=== PATIENT | male | born 1930 | race Caucasian/White ===

== ENCOUNTER 2018-06-10 14:16 | Inpatient (IN) | payer OTHER ==
[~2018-06-10] VITALS: Ht 170.2 cm; Wt 74.3 kg
--- NOTE | ~2018-06-10 | 2DMMODE ---
[facility] [address] [place] [address] 2 D/M-MODE ECHOCARDIOGRAM Name: ASHLYJORDEN Seble Room #: 202-P [facility] IN .R.#: [id number] Admission: 06/10/18 Attend Phys: Kaden Sandhu, Discharge: Date of : [birth year]/08/[birth year] Date of Service: 06/11/18 0826 Report #: [id number] THIS REPORT FOR: //name// APPROVED REPORT Study performed: 06/11/2018 07:03:56 EXAM: Comprehensive 2D, Doppler, and color-flow Echocardiogram Patient Location: Bedside Room #: 202 Status: routine BSA: 1.85 HR: 54 bpm BP: 132/63 mmHg Rhythm: LBBB, AFIB Other Information Study Quality: Good Indications Chest pain, dyspnea, elevated troponin. Hx: CAD, stents, ISCM, Afib, HTN, HLP 2D Dimensions RVDd: 36.62 mm IVSd: 12.11 (7-11mm) LVOT Diam: 21.31 (18-24mm) LVDd: 50.34 mm PWd: 9.69 (7-11mm) Ascending Ao: 38.75 (22-36mm) LVDs: 41.12 (25-40mm) Aortic Root: 36.03 mm Volumes Left Atrial Volume (Systole) Single Plane 4CH: 49.14 mL Single Plane 2CH: 55.44 mL LA ESV Index: 31.00 mL/m2 Aortic Valve AoV Peak Wesyl.: 1.11 m/s AO Peak Gr.: 5.78 mmHg LVOT Max P.05 mmHg LVOT Max V: 0.71 m/s SINA Vmax: 2.27 cm2 Mitral Valve MV Decel. Time: 184.46 ms MV E Max Wesly.: 0.95 m/s [facility] [place] [employer] [address] 2 D/M-MODE ECHOCARDIOGRAM Name: JORDEN LIMON Room #: 202-P [facility] M.R.#: [id number] Admission: 06/10/18 Attend Phys: Kaden Sanhdu, Discharge: Date of : 11/08/[birth year] Date of Service: 06/11/18 0826 Report #: [id number] Pulmonary Valve PV Peak Wesly.: 1.17 m/s PV Peak Gr.: 5.49 mmHg Tricuspid Valve RAP Estimate: 5.00 mmHg Left Ventricle The left ventricle is normal size. Mild septal hypertrophy is present. Left ventricular systolic function is moderate to severely decreased. Global hypokinesis, akinesis of base of inferior wall LVEF 30%. This study is not technically sufficient to allow evaluation of the LV diastolic function. Right Ventricle The right ventricle is normal size. The right ventricular systolic function is normal. Atria The left atrium size is normal. The right atrium size is normal. Aortic Valve Aortic valve leaflets are minimally sclerotic No aortic regurgitation. There is no aortic valvular stenosis. Mitral Valve The mitral valve is normal in structure. Mild to moderate mitral regurgitation. Tricuspid Valve The tricuspid valve is normal in structure. There is no tricuspid valve regurgitation noted. Unable to assess PA pressure. Pulmonic Valve The pulmonary valve is normal in structure. Trace pulmonic regurgitation. Great Vessels The aortic root is normal in size. The ascending aorta is mildly dilated (3.9cm). IVC is normal in size and collapses >50% with inspiration. Pericardium There is no pericardial effusion. [facility] [place] [employer] [address] 2 D/M-MODE ECHOCARDIOGRAM Name: JORDEN LIMON Room #: 202-P [facility] M.R.#: [id number] Admission: 06/10/18 Attend Phys: Kaden Sandhu, Discharge: Date of : 11/08/[birth year] Date of Service: 06/11/18825 Report #: [id number] <Conclusion> Left ventricular systolic function is moderate to severely decreased. Global hypokinesis, akinesis of base of inferior wall LVEF 30%. Aortic valve leaflets are minimally sclerotic No aortic regurgitation. The mitral valve is normal in structure. Mild to moderate mitral regurgitation. Pulmonary artery pressure could not be reliably ascertained There is no pericardial effusion. <ELECTRONICALLY SIGNED> By: Mario Rich MD, [facility] 11825 5 5 Mario Rich MD, [facility] /INF
--- NOTE | ~2018-06-10 | CATHLAB ---
[facility] [address] [place] [address] INVASIVE PROCEDURE REPORT Name: JORDEN LIMON Room #: 202-P [facility] IN .R.#: [id number] Admission: 06/10/18 Attend Phys: Kaden Sandhu, Discharge: Date of : 11/08/30 Date of Service: 06/14/18 1502 Report #: [id number] THIS REPORT FOR: //name// APPROVED REPORT Study performed: 06/14/2018 07:28:22 Patient Details Patient Status: In-Patient Room #: The patient is a 87 year-old male Event Personnel Lyle Russo Heavy Equipment Rental Manager, Gerry Martin RN, Gita Hutson RTR, MILES Dela Cruz, Brandan Kraus Monitor Procedures Performed Right and Left Heart Cath w/or w/o Coronarie [id number] [facility] Indication Chest pain Procedure Narrative The Right Groin^ was infiltrated with subcutaneous anesthesia. A PINNACLE 6FR Sheath #[id number] sheath was inserted into the RFA^. Coronary angiography was performed using coronary diagnostic catheters. The right coronary system was accessed and visualized with a JR4 catheter. The left coronary system was accessed and visualized with a 6FR JL5 #[id number] catheter. The left ventricle was accessed and visualized with a PIGTAIL catheter. Left ventricular/Aortic Valve gradient assessed via catheter pullback. Left ventriculogram was performed in 30 degree projection. Closure device was deployed with a 6 Fr MYNXGRIP 6/7F #[id number]. Hemostasis was obtained with manual pressure following sheath removal without any complications. The patient tolerated the procedure well and there were no complications associated with the procedure. There was no hematoma. Intraoperative Conscious Sedation Sedation start time: 8.43 Case end Time: 9.29 Fentanyl 50 mcg Versed 1.5 mg Fluoro Time: 5.19 minutes Dose: DAP 4343 cGycm2 412 mGy Contrast Type and Amount: Visipaque 80 ml [facility] [place] [address] INVASIVE PROCEDURE REPORT Name: JORDEN LIMON Seble Room #: 202-P [facility] IN M.R.#: [id number] Admission: 06/10/18 Attend Phys: Kaden Sandhu, Discharge: Date of : 11/08/30 Date of Service: 06/14/18 1502 Report #: [id number] Hemodynamics The right atrial mean pressure is 26 mmHg. The right ventricular pressure is 55/13 mmHg. The pulmonary artery pressure is 61/24 mmHg with a mean of mmHg. The mean pulmonary capillary wedge pressure is 30 mmHg. The aortic pressure is 172/78 mmHg with a mean of 108 mmHg. The left ventricular pressure is 177/24 mmHg with a mean of mmHg. The left ventricular end diastolic pressure is 33 mmHg. There was no gradient across the aortic valve upon pullback. Pullback from the left ventricle to the aorta revealed no gradient across the aortic valve. Conclusion #1 mildly dilated left ventricle. Akinesis of the inferior base moderate global hypo-EF 35% range with 2+ MR #2 left main mildly diseased and calcified giving rise to LAD and circumflex #3 LAD is moderately diseased there is a proximal mid vessel stent has 30-40% in-stent and then 50% mid vessel lesion which is also in-stent. Calcification extends around the apex but no high-grade occlusive disease #4 ostial circumflex nondominant mildly disease and then a 60% proximal large OM lesion not flow limiting. The proximal circumflex has a high-grade lesion which then gives essentially supplies a small circumflex branch which then is distally occluded this is chronic. Some left to left collateralization is noted fairly small area of distribution The distal circumflex system does filling from left to left collateralization this would not be amenable to intervention #5 right coronary artery is totally occluded some collateralization of the PDA is noted from the left system. This has been previously noted. No indication for intervention #6 bilateral renal arteries have mild disease there was question of renal disease on prior noninvasive testing #7 heart catheterization was performed by [place] catheter and output by thermodilution. Moderate volume overload is noted see above hemodynamics. IV Lasix has been initiated Recommendations and plan: We'll return to CCU. Follow post stent protocol. More aggressive diuresis and optimization of medical therapy. No indication for coronary intervention. These findings are [facility] [address] [place] [address] INVASIVE PROCEDURE REPORT Name: JORDEN LIMON Room #: 202-P [facility] IN M.R.#: [id number] Admission: 06/10/18 Attend Phys: Kaden Sandhu, Discharge: Date of : 11/08/30 Date of Service: 06/14/18 1502 Report #: [id number] consistent with a type II infarcts possible mismatch of supply and demand. <ELECTRONICALLY SIGNED> By: Lyle Russo MD, FACC 06/14/18 1502 150 01 Lyle Russo MD, FACC /INF
--- NOTE | ~2018-06-10 | EKG ---
[address] [place] [address] ELECTROCARDIOGRAM REPORT Name: JORDEN LIMON Room #: 202-P ADM IN M.R.#: [id number] Admission: 06/10/18 Attend Phys: Kaden Sandhu MD Discharge: Date of : 11/08/30 Report #: [id number] THIS REPORT FOR: //name// [facility] Test Date: 2018-06-13 Test Time: 10:00:58 Pat Name: JORDEN LIMON Department: Room: 202 P Gender: M Ssn/Ssbn Weapons Equipment Operator: ZAC : 1930 Requested By: Francisco Javier Amador Order Number: [id number] MD: Francisco Javier Amador Measurements Intervals [place] Rate: 57 P: 19 NE: 279 QRS: -2 QRSD: 160 T: 191 QT: 499 QTc: 486 Interpretive Statements Sinus rhythm Atrial premature complex Prolonged NE interval Left bundle branch block Compared to ECG 06/11/2018 06:15:56 Atrial premature complex(es) now present First degree AV block now present Atrial fibrillation no longer present Ventricular premature complex(es) no longer present Electronically Signed On 06-13-2018 10:31:28 MARRIAGE AND FAMILY COUNSELOR by Francisco Javier Amador [email or web address] <ELECTRONICALLY SIGNED> By: Francisco Javier Amador MD 06/13/18 1031 1000 1000 Francisco Javier Amador MD /EPI
--- NOTE | ~2018-06-10 | EKG ---
[address] [email or web address] [address] ELECTROCARDIOGRAM REPORT Name: JORDEN LIMON Room #: [facility] M.R.#: [id number] Admission: Attend Phys: Discharge: Date of : 11/08/30 Report #: [id number] THIS REPORT FOR: //name// [facility] ED Test Date: 2018-06-10 Test Time: 14:23:36 Pat Name: JORDEN LIMON Department: Room: Gender: M Etymology Professor: TRISTAN : 1930 Requested By: Danial Pena Order Number: [id number] MD: Bradley Deleon Measurements Intervals [place] Rate: 69 P: [place]: QRS: -4 QRSD: 151 T: 118 QT: 455 QTc: 488 Interpretive Statements Atrial fibrillation Left bundle branch block Compared to ECG 05/06/2005 06:54:52 Electronically Signed On 06-10-2018 14:51:30 PLUNKET NURSE by Bradley Deleon [email or web address] <ELECTRONICALLY SIGNED> By: Bradley Deleon MD 06/10/18 1451 1423 1423 Bradley Deleon MD /EPI
--- NOTE | ~2018-06-10 | EKG ---
[address] [address] ELECTROCARDIOGRAM REPORT Name: JORDEN LIMON Room #: 202-P ADM IN M.R.#: [id number] Admission: 06/10/18 Attend Phys: Kaden Sandhu MD Discharge: Date of : 11/08/30 Report #: [id number] THIS REPORT FOR: //name// [facility] Test Date: 2018-06-11 Test Time: 06:15:56 Pat Name: JORDEN LIMON Department: Room: 202 P Gender: M Parts Specialist: PIYUSH : 1930 Requested By: Mario Rich Order Number: [id number] MD: Bradley Deleon Measurements Intervals [place] Rate: 48 P: GA: QRS: 8 QRSD: 161 T: 161 QT: 528 QTc: 472 Interpretive Statements Atrial fibrillation Ventricular premature complex Left bundle branch block Compared to ECG 06/10/2018 14:23:36 Ventricular premature complex(es) now present Electronically Signed On 06-11-2018 8:04:30 SPOOLING SUPERVISOR by Bradley Deleon [email or web address] <ELECTRONICALLY SIGNED> By: [place] [address] 4 4 Bradley Deleon MD /BRIAN
[2018-06-10 14:40] VITALS: BP 164/100
[2018-06-10 15:07] LABS: ABSOLUTE NEUTROPHILS 7.7 thou/uL (1.4-8.2); BASOPHILS 0.2 % (0.0-2.0); EOSINOPHILS 1.2 % (0.0-3.0); HEMATOCRIT 41.7 % (42.0-52.0); HEMOGLOBIN 14.3 gm/dL (14.0-18.0); LYMPHOCYTES 17.1 % (24.0-44.0); MCH 30.6 pg (26.0-34.0); MCHC 34.2 g/dL (28.0-37.0); MCV 89.4 fL (80.0-100.0); MONOCYTES 10.6 % (1.0-8.0); PLATELET COUNT 355 thou/uL (150-400); POLYS 70.9 % (36.0-66.0); RBC 4.67 mil/uL (4.50-6.00); RDW 13.3 % (10.5-14.5); WBC 10.8 thou/uL (4.0-11.0)
[2018-06-10 15:14] LABS: CALCIUM 9.6 mg/dL (8.5-10.1); CREATININE 1.7 mg/dL (0.7-1.3); POTASSIUM 4.2 mmol/L (3.5-5.1)
[2018-06-10 15:20] LABS: ALBUMIN 3.5 g/dL (3.4-5.0); TOTAL BILIRUBIN 0.6 mg/dL (<0.1-1.0); TOTAL PROTEIN 6.4 g/dL (6.4-8.2)
[2018-06-10] MEDS ORDERED: ARICEPT 5 MG TAB5 MG PO (16:59)
[2018-06-10] MEDS ORDERED: LIPITOR 20 MG T20 M1 PO (16:59)
[2018-06-10] MEDS ORDERED: NAMENDA 10 MG T10 MG PO (16:59)
[2018-06-10] MEDS ORDERED: BYSTOLIC2.5 MG PO (17:00)
[2018-06-10] MEDS ORDERED: XARELTO15 MG PO (17:00)
[2018-06-10] MEDS ORDERED: IMDUR 30 MG TAB30 M1 PO (17:01)
[2018-06-10 17:16] VITALS: BP 129/69
[2018-06-10 17:22] LABS: INR 1.1; PROTIME 11.7 Seconds (9.3-11.4)
[2018-06-10 18:30] VITALS: BP 137/78
[2018-06-10 18:51] VITALS: BP 142/67
[2018-06-11 00:19] VITALS: BP 130/74
[2018-06-11 04:21] LABS: ABSOLUTE NEUTROPHILS 6.3 thou/uL (1.4-8.2); BASOPHILS 0.6 % (0.0-2.0); EOSINOPHILS 2.2 % (0.0-3.0); HEMATOCRIT 39.1 % (42.0-52.0); LYMPHOCYTES 19.9 % (24.0-44.0); MCHC 33.2 g/dL (28.0-37.0); MCV 90.4 fL (80.0-100.0); MONOCYTES 9.2 % (1.0-8.0); PLATELET COUNT 311 thou/uL (150-400); POLYS 68.1 % (36.0-66.0); RBC 4.32 mil/uL (4.50-6.00); RDW 13.4 % (10.5-14.5); WBC 9.2 thou/uL (4.0-11.0)
[2018-06-11 04:52] LABS: CALCIUM 8.5 mg/dL (8.5-10.1); CREATININE 1.5 mg/dL (0.7-1.3); MAGNESIUM 1.8 mg/dL (1.8-2.4); POTASSIUM 3.7 mmol/L (3.5-5.1)
[2018-06-11 05:29] VITALS: BP 132/63
[2018-06-11 08:00] VITALS: BP 123/53
[2018-06-11 12:00] VITALS: BP 132/63
[2018-06-11 16:00] VITALS: BP 120/62
[2018-06-11 19:30] VITALS: BP 107/60
[2018-06-12 04:50] VITALS: BP 118/59
[2018-06-12 05:07] LABS: CALCIUM 8.1 mg/dL (8.5-10.1); CREATININE 1.6 mg/dL (0.7-1.3); POTASSIUM 3.8 mmol/L (3.5-5.1)
[2018-06-12 08:20] VITALS: BP 124/57
[2018-06-12 11:52] VITALS: BP 118/47
[2018-06-12 20:45] VITALS: BP 148/70
[2018-06-13 05:26] VITALS: BP 155/79
[2018-06-13 07:25] VITALS: BP 145/72
[2018-06-13 08:19] LABS: HEMATOCRIT 35.7 % (42.0-52.0); HEMOGLOBIN 12.1 gm/dL (14.0-18.0); MCH 30.6 pg (26.0-34.0); MCHC 33.8 g/dL (28.0-37.0); MCV 90.6 fL (80.0-100.0); RBC 3.94 mil/uL (4.50-6.00); RDW 13.4 % (10.5-14.5); WBC 10.9 thou/uL (4.0-11.0)
[2018-06-13 08:27] LABS: CREATININE 1.5 mg/dL (0.7-1.3); POTASSIUM 4.2 mmol/L (3.5-5.1)
[2018-06-13 11:45] VITALS: BP 132/67
[2018-06-13 15:45] VITALS: BP 141/71
[2018-06-13 19:07] VITALS: BP 153/78
[2018-06-14] VITALS (15 sets, daily range): BP systolic 138–176; BP diastolic 43–86
[2018-06-14 03:57] LABS: CALCIUM 8.7 mg/dL (8.5-10.1); CREATININE 1.4 mg/dL (0.7-1.3); MAGNESIUM 1.8 mg/dL (1.8-2.4); POTASSIUM 4.1 mmol/L (3.5-5.1)
[2018-06-14 04:30] LABS: HEMATOCRIT 36.9 % (42.0-52.0); HEMOGLOBIN 12.3 gm/dL (14.0-18.0); MCH 30.2 pg (26.0-34.0); MCHC 33.4 g/dL (28.0-37.0); MCV 90.5 fL (80.0-100.0); RBC 4.08 mil/uL (4.50-6.00); RDW 13.4 % (10.5-14.5); WBC 11.8 thou/uL (4.0-11.0)
[2018-06-15 04:10] LABS: APTT 26.3 Seconds (24.5-32.8); INR 1.2; PROTIME 12.5 Seconds (9.3-11.4)
[2018-06-15 04:24] LABS: HEMATOCRIT 40.5 % (42.0-52.0); HEMOGLOBIN 13.5 gm/dL (14.0-18.0); MCH 30.1 pg (26.0-34.0); MCHC 33.3 g/dL (28.0-37.0); MCV 90.2 fL (80.0-100.0); RBC 4.49 mil/uL (4.50-6.00); RDW 13.5 % (10.5-14.5); WBC 12.7 thou/uL (4.0-11.0)
[2018-06-15 04:29] LABS: CALCIUM 8.8 mg/dL (8.5-10.1); CREATININE 1.5 mg/dL (0.7-1.3); MAGNESIUM 1.7 mg/dL (1.8-2.4); POTASSIUM 3.8 mmol/L (3.5-5.1)
[2018-06-15 05:09] VITALS: BP 144/75
[2018-06-15 07:31] VITALS: BP 130/74
[2018-06-15] MEDS ORDERED: IMDUR 60 MG TAB60 M1 PO (10:37)
[2018-06-15] MEDS ORDERED: DEMADEX20 MG PO (10:37)
[2018-06-15] MEDS ORDERED: SPIRONOLACTONE25 M1 PO (10:37)
[2018-06-15 10:54] VITALS: BP 130/74
== END 2018-06-15 12:00 | disposition home or self-care (01) | DRG 280 ==
LOC: ER 14:16 → 2N 16:25 → EROBS 16:25 → 2N 18:28 → ENTRNSPT 06-15 11:20 → EDTRNSPTSTS 06-15 11:28 → DELTRNSPT 06-15 11:44 → ENTRNSPT 06-15 11:44 → 2N 06-15 12:00
PROVIDERS: Internal Medicine; Nurse Practitioner; Nurse Practitioner Adult Health; Physician Assistant
PROC: 4A023N8 Measurement of Cardiac Sampling and Pressure, Bilateral, Percutaneous Approach (ICD-10-PCS; principal; 2018-06-14)
PROC: B211YZZ Fluoroscopy of Multiple Coronary Arteries using Other Contrast (ICD-10-PCS; principal; 2018-06-14)
PROC: B215YZZ Fluoroscopy of Left Heart using Other Contrast (ICD-10-PCS; principal; 2018-06-14)
DX: I21.4 Non-ST elevation (NSTEMI) myocardial infarction (principal); I50.21 Acute systolic (congestive) heart failure; N17.9 Acute kidney failure, unspecified; I48.1 Persistent atrial fibrillation; D68.59 Other primary thrombophilia; K57.92 Diverticulitis of intestine, part unspecified, without perforation or abscess without bleeding; N18.4 Chronic kidney disease, stage 4 (severe); I13.0 Hypertensive heart and chronic kidney disease with heart failure and stage 1 through stage 4 chronic kidney disease, or unspecified chronic kidney disease; E78.5 Hyperlipidemia, unspecified; I25.10 Atherosclerotic heart disease of native coronary artery without angina pectoris; I25.5 Ischemic cardiomyopathy; I44.7 Left bundle-branch block, unspecified; F03.90 Unspecified dementia, unspecified severity, without behavioral disturbance, psychotic disturbance, mood disturbance, and anxiety; Z66 Do not resuscitate; R00.1 Bradycardia, unspecified; Z79.899 Other long term (current) drug therapy; Z95.5 Presence of coronary angioplasty implant and graft; Z88.8 Allergy status to other drugs, medicaments and biological substances; Z87.891 Personal history of nicotine dependence; Z98.52 Vasectomy status
CPT/HCPCS: 10081; 10194

== ENCOUNTER 2019-05-25 07:48 | Outpatient (CLI) | payer OTHER ==
[~2019-05-25] VITALS: Ht 167.6 cm; Wt 72.6 kg
[~2019-05-25 07:48] MED LIST: ARICEPT 5 MG TAB5 MG PO; BYSTOLIC2.5 MG PO; DEMADEX20 MG PO; IMDUR 30 MG TAB30 M1 PO; IMDUR 60 MG TAB60 M1 PO; LIPITOR 20 MG T20 M1 PO; NAMENDA 10 MG T10 MG PO; SPIRONOLACTONE25 M1 PO; XARELTO15 MG PO
[2019-05-25 08:31] LABS: ABSOLUTE NEUTROPHILS 7.1 thou/uL (1.4-8.2); BASOPHILS 0.9 % (0.0-2.0); HEMATOCRIT 39.7 % (42.0-52.0); HEMOGLOBIN 12.7 gm/dL (14.0-18.0); LYMPHOCYTES 12.7 % (24.0-44.0); MCH 30.1 pg (26.0-34.0); MCV 94.1 fL (80.0-100.0); MONOCYTES 9.7 % (1.0-8.0); PLATELET COUNT 270 thou/uL (150-400); POLYS 73.7 % (36.0-66.0); RBC 4.22 mil/uL (4.50-6.00); RDW 13.8 % (10.5-14.5); WBC 9.7 thou/uL (4.0-11.0)
[2019-05-25 08:36] LABS: CALCIUM 9.4 mg/dL (8.5-10.1); CREATININE 1.7 mg/dL (0.7-1.3); POTASSIUM 4.6 mmol/L (3.5-5.1)
[2019-05-25 08:40] VITALS: BP 136/75
[2019-05-25] MEDS ORDERED: ASPIRIN325 PO (08:52)
[2019-05-25] MEDS ORDERED: UNICOMPLEX M TA1 TA1 PO (08:53)
[2019-05-25] MEDS ORDERED: COQ-10100 MG PO (08:54)
[2019-05-25] MEDS ORDERED: CALCIUM 500 +1 EAC1 PO (08:55)
[2019-05-25] MEDS ORDERED: VITAMIN D35000 UNI1 PO (08:55)
--- NOTE | 2019-05-25 13:30 | NUR ---
1300-PT SITTING UP IN BED, CONTINUES TO COMPLAIN OF H/A RATING 10/10. STATES TYLENOL DID NOT WORK. PT.STATES HE USUALLY DRINKS COFFEE IN THE MORNING AND HAS NOT HAD ANY TODAY. COFFEE GIVEN, BUT ONLY TAKES SMALL SIP. PT DENIES SOA, HOWEVER SEEMS TO BE USING ACCESSORY MUSCLES EVERY NOW AND AGAIN TO TAKE A DEEP BREATH. PT DENIES SOA. 02 SATS HIGH 90'S. [address] ANGELITA LOPEZ FOR PT TO TAKE HYDROCODONE 5/325 X 1.
--- NOTE | 2019-05-25 14:21 | NUR ---
PT STATES HIS HEADACHE IS GETTING WORSE, DESPITE LORTAB. VS STABLE. PT HAS VOIDED A TOTAL OF APPROX 300-350 OF CLEAR YELLOW URINE. SPOUSE AT BEDSIDE.
--- NOTE | 2019-05-25 16:09 | NUR ---
Pt resting, headache easing up. Report called to Rosina in CCU. Pt will be going to CCU as soon as able.
--- NOTE | 2019-05-25 16:28 | NUR ---
Contacting Dr. Russo re: pt becoming hypertensive . Requesting to order home medications.
--- NOTE | 2019-05-25 16:32 | NUR ---
Order received to restart home medications.
[2019-05-25 20:00] VITALS: BP 165/66
[2019-05-26] VITALS: BP 140/74
[2019-05-26 05:00] VITALS: BP 143/72
--- NOTE | 2019-05-26 05:00 | NUR ---
ASSUMED PT CARE AT 1900. PT IS DROWSY AND LAYING IN BED. SPOUSE AT BEDSIDE. RIGHT GROIN SISTE IS INTACT. NO SIGN OF BLEEDING OT HEMATOMA. ASSESSMENT COMPLETED AND DOCUMENTED. NO SIGN OF DISTRESS NOTED IN PT. ASSESSMENT COMPLETED AND DOCUMENTED. FALL PRECAUUTION IN PLACE. PT IS STABLE. SCHEDULED MEDS ADMINISTERED TO PT. PT TOLERATED PO INTAKE. PT DENIES ANY PAIN, NO FURTHER NEEDS AT THIS TIME.
[2019-05-26 05:12] LABS: HEMATOCRIT 41.6 % (42.0-52.0); HEMOGLOBIN 13.6 gm/dL (14.0-18.0); MCH 30.5 pg (26.0-34.0); MCHC 32.6 g/dL (28.0-37.0); MCV 93.6 fL (80.0-100.0); RBC 4.45 mil/uL (4.50-6.00); RDW 13.6 % (10.5-14.5); WBC 14.4 thou/uL (4.0-11.0)
[2019-05-26 05:39] LABS: CALCIUM 9.4 mg/dL (8.5-10.1); CREATININE 1.5 mg/dL (0.7-1.3); POTASSIUM 4.4 mmol/L (3.5-5.1)
[2019-05-26 05:45] LABS: TROPONIN-I 0.72 ng/mL (<0.06)
[2019-05-26 07:27] VITALS: BP 147/73
[2019-05-26] MEDS ORDERED: ADULT LOW DOSE81 MG PO (07:54)
[2019-05-26 09:31] VITALS: BP 147/73
--- NOTE | 2019-05-26 10:40 | NUR ---
met with patient to discuss dc planning and Home Misael ordered. patient resides at home with spouse. Spouse reports ambulated independently. They were going to gym approx 2 months ago and then patient no longer could do as much. Discussed orders for HH and spoke with cardiac rehab outpatient RN. Patient to begin cardiac rehab next week. Reviewed Home health. reports HH not needed if beginning cardiac rehab next week. Updated phys no HH at this time. Gave number of casemgr to call if they change their mind. no further needs
--- NOTE | 2019-05-26 13:42 | NUR ---
ASSUMED CARE 0700. ALERT X3 WITH FORGETFULNESS , HX OF DEMENTIA, DENIES PAIN, UP WITH STAND BY ASSIST. BEDSIDE. CATH SITE C/D/I. REVIEWED DC MEDICATIONS AND INSTRUCTIONS SITE CARE AND FOLLOW UP WITH CARDIOLGY. IV AND HEART MONITOR REMOVED. DC HOME WITH CARDIAC REHAB CARE. LEFT AT 1030
--- NOTE | 2019-05-26 16:54 | EKG ---
[place] [address] [facility] [facility] [address] ELECTROCARDIOGRAM REPORT Name: JORDEN LIMON [facility] [id number] Admission: 05/25/19 Attend Phys: Lyle Russo MD, Discharge: 05/26/19 Date of : 11/08/[birth year] Report #: [id number] THIS REPORT FOR: //name// [facility] Test Date: 2019-05-25 Test Time: 08:28:38 Pat Name: JORDEN LIMON Department: Room: Gender: M Stone Spreader Operator: : 1930 Requested By: Lyle Russo Order Number: [id number] MD: Mario Rich Measurements Intervals [place] Rate: 53 P: 16 GA: 319 QRS: -14 QRSD: 148 T: 183 QT: 498 QTc: 468 Interpretive Statements Sinus rhythm Prolonged GA interval Left bundle branch block Compared to ECG 06/13/2018 10:00:58 Atrial premature complex(es) no longer present Electronically Signed On 05-26-2019 16:54:41 DERRICK MAN by Mario Rich [email or web address] <ELECTRONICALLY SIGNED> By: Mario Rich MD, [facility] 05/26/19 4994 0828 Mario Rich MD, [facility] /EPI
--- NOTE | 2019-05-26 17:05 | EKG ---
[place] [address] [facility] [place] [place] [address] ELECTROCARDIOGRAM REPORT Name: JORDEN LIMON Room #: [facility]P [facility] [id number] Admission: 05/25/19 Attend Phys: Lyle Russo MD, Discharge: 05/26/19 Date of : [birth year]/08/[birth year] Report #: [id number] THIS REPORT FOR: //name// [facility] Test Date: 2019-05-25 Test Time: 13:20:27 Pat Name: JORDEN LIMON Department: Room: Gender: Flume Maker: Orville DURAN : 1930 Requested By: Lyle Russo Order Number: [id number] MD: Mario Rich Measurements Intervals [place] Rate: 64 P: 36 FL: 306 QRS: -11 QRSD: 153 T: 133 QT: 486 QTc: 502 Interpretive Statements Sinus rhythm Premature ventricular complexes Prolonged [place] interval Left bundle branch block Compared to ECG 06/13/2018 10:00:58 Ventricular premature complex(es) now present Electronically Signed On 05-26-2019 17:05:09 CORSETIER by Mario Rich [email or web address] <ELECTRONICALLY SIGNED> By: Mario Rich MD, [facility] 05/26/19 1705 1320 1320 Mario Rich MD, [facility] /EPI
--- NOTE | 2019-05-26 17:15 | EKG ---
[place] [address] [facility] [address] [place] [address] ELECTROCARDIOGRAM REPORT Name: JORDEN LIMON [facility] [id number] Admission: 05/25/19 Attend Phys: Lyle Russo MD, Discharge: 05/26/19 Date of : [birth year] Report #: [id number] THIS REPORT FOR: //name// [facility] Test Date: 2019-05-26 Test Time: 07:07:27 Pat Name: JORDEN LIMON Department: Room: 207 P Gender: M Classroom Assistant: MITZY : 1930 Requested By: Wanda Huff Order Number: [id number] MD: Mario Rich Measurements Intervals [place] Rate: 73 P: 100 VA: 329 QRS: 1 QRSD: 150 T: 93 QT: 453 QTc: 500 Interpretive Statements Sinus rhythm Prolonged VA interval Left bundle branch block Compared to ECG 06/13/2018 10:00:58 Ventricular premature complex(es) no longer present Electronically Signed On 05-26-2019 17:15:35 DIRECTOR CLINICAL INFORMATION SERVICES by Mario Rich [email or web address] <ELECTRONICALLY SIGNED> By: Mario Rich MD, [facility] 05/26/19 1715 0707 6 Mario Rich MD, [facility] /EPI
--- NOTE | 2019-05-27 17:57 | CATHLAB ---
[facility] [address] [place] [address] INVASIVE PROCEDURE REPORT Name: JORDEN LIMON Room #: ANGELINA Montalvo#: [id number] Admission: 05/25/19 Attend Phys: Lyle Russo, Discharge: 05/26/19 Date of : [birth year] Report #: [id number] THIS REPORT FOR: //name// APPROVED REPORT Study performed: 05/25/2019 09:39:30 Patient Details Patient Status: Out-Patient Room #: The patient is a 88 year-old male Event Personnel Lyle Russo Junior Staff Accountant, Gerry Martin RN, Estelle Posada Monitor, Agata Farrar RTR Scrub Procedures Performed Art Access - R femoral artery* 53440 Initial Mod Sed Same Phys/QHP Gr5y 473022 18574 Mod Sed Same Phys/QHP Ea 972976 Coronary Angiography Only 0455955 CORANG PTCA Single Vessel LAD 0479992 PCISINGLE Hemostasis w/ Mynx Indication Chest pain Procedure Narrative The patient was brought electively to the Cardiac Catheterization Laboratory and was prepped and draped in a sterile manner. The Right Groin^ was infiltrated with 1% Lidocaine subcutaneous anesthesia. A PINNACLE 6FR Sheath #[id number] sheath was inserted into the RFA^. Coronary angiography was performed using coronary diagnostic catheters. The left coronary system was accessed and visualized with a JL 4 catheter. Closure device was deployed with a 6 Fr Mynx. The patient tolerated the procedure well and there were no complications associated with the procedure. There was no hematoma. Intraoperative Conscious Sedation Sedation start time: 09:28 Case end Time: 10:17 Fentanyl 50 mcg Versed 1 mg Fluoro Time: 9.40 minutes Dose: DAP 8363.00 cGycm2 1267 mGy Contrast Type and Amount: Omnipaque 90 ml Hemodynamics [facility] [email or web address] [address] INVASIVE PROCEDURE REPORT Name: ASHLYJORDEN Room #: [facility] Montalvo#: [id number] Admission: 05/25/19 Attend Phys: Lyle Russo, Discharge: 05/26/19 Date of : [birth year]/08/[birth year] Report #: [id number] The aortic pressure is 170/68 mmHg with a mean of 107 mmHg. PCI Technique Lesion Percutaneous coronary intervention was performed on the mid left anterior descending artery segment. A LAUNCHER 6FR EBU 3.5 #[id number] Guide Catheter was used to engage the ostium. A Luge Wire .014 x 182CM #[id number] Interventional Guidewire was used to cross the lesion. BALLOON DILATION A Balloon catheter TREK NC OTW 2.5 X 12 #[id number] was inserted and inflated up to 18.00atm for 30seconds. Additional Inflation: 20.00atm for 23seconds. Additional Inflation: 20.00atm for 20seconds. Conclusion #1 assessment PTCA of a mid LAD in-stent restenosis of 90% to 20% with a 2.5 mm noncompliant balloon 0% residual JODIE grade 3 flow distal moderately calcified LAD. #2 ostial left main 30-40% calcified giving rise to LAD and circumflex #3 circumflex OM nondominant but large OM branch calcified no occlusive disease moderate disease in the small circumflex in the AV groove at the takeoff of the OM no indication for intervention this vessel occludes distally #4 dominant right coronary artery is occluded moderately collateralized PDA via the left system Recommendations and plan: Continue aggressive risk factor modification. No change in medical therapy. Cardiac rehabilitation may benefit. No LV gram due to preserving contrast utilization. Transfer to CCU stable condition. <ELECTRONICALLY SIGNED> By: Lyle Russo MD, FACC 05/27/191756 56 56 Lyle Russo MD, FACC /INF
== END 2019-05-26 10:30 | disposition home or self-care (01) ==
LOC: CATH 07:48 → 2N 17:27 → ENTRNSPT 05-26 10:09 → EDTRNSPTSTS 05-26 10:19 → CATH 05-26 10:30
PROVIDERS: Internal Medicine Cardiovascular Disease; Nurse Practitioner Gerontology
DX: R07.9 Chest pain, unspecified (principal); T82.855A Stenosis of coronary artery stent, initial encounter; I25.10 Atherosclerotic heart disease of native coronary artery without angina pectoris; I10 Essential (primary) hypertension; E78.5 Hyperlipidemia, unspecified; I48.91 Unspecified atrial fibrillation; I42.9 Cardiomyopathy, unspecified; E78.00 Pure hypercholesterolemia, unspecified; F03.90 Unspecified dementia, unspecified severity, without behavioral disturbance, psychotic disturbance, mood disturbance, and anxiety; Z98.890 Other specified postprocedural states; Z79.899 Other long term (current) drug therapy; Z87.891 Personal history of nicotine dependence; Z79.01 Long term (current) use of anticoagulants; Z88.8 Allergy status to other drugs, medicaments and biological substances; Z79.82 Long term (current) use of aspirin
CPT/HCPCS: 10081

== ENCOUNTER → 2020-01-12 | Outpatient (CLI) | payer OTHER ==
[~2020-01-12] MED LIST changes: +ADULT LOW DOSE81 MG PO; +ASPIRIN325 PO; +CALCIUM 500 +1 EAC1 PO; +COQ-10100 MG PO; +UNICOMPLEX M TA1 TA1 PO; +VITAMIN D35000 UNI1 PO
== END ==
LOC: SJCVC 11:08
PROVIDERS: ATTEND Internal Medicine Cardiovascular Disease
DX: I44.0 Atrioventricular block, first degree (principal); I44.7 Left bundle-branch block, unspecified; R00.1 Bradycardia, unspecified; R94.31 Abnormal electrocardiogram [ECG] [EKG]; I25.118 Atherosclerotic heart disease of native coronary artery with other forms of angina pectoris; I10 Essential (primary) hypertension; E78.00 Pure hypercholesterolemia, unspecified; F03.90 Unspecified dementia, unspecified severity, without behavioral disturbance, psychotic disturbance, mood disturbance, and anxiety; I73.9 Peripheral vascular disease, unspecified; K21.9 Gastro-esophageal reflux disease without esophagitis; Z82.49 Family history of ischemic heart disease and other diseases of the circulatory system; Z79.82 Long term (current) use of aspirin; Z79.899 Other long term (current) drug therapy; Z87.891 Personal history of nicotine dependence

== ENCOUNTER → 2020-07-24 | Outpatient (CLI) | payer OTHER, BC | LOC: SJCVC 14:09 | PROVIDERS: ATTEND Internal Medicine Cardiovascular Disease | DX: I48.92 Unspecified atrial flutter (principal); R94.31 Abnormal electrocardiogram [ECG] [EKG]; I25.10 Atherosclerotic heart disease of native coronary artery without angina pectoris; I44.7 Left bundle-branch block, unspecified; I10 Essential (primary) hypertension; E78.00 Pure hypercholesterolemia, unspecified; F03.90 Unspecified dementia, unspecified severity, without behavioral disturbance, psychotic disturbance, mood disturbance, and anxiety; I77.9 Disorder of arteries and arterioles, unspecified; K21.9 Gastro-esophageal reflux disease without esophagitis; Z88.8 Allergy status to other drugs, medicaments and biological substances; Z87.891 Personal history of nicotine dependence; Z98.890 Other specified postprocedural states ==